=== PATIENT | male | born 1995 | race African-American/Black ===

== ENCOUNTER 2017-12-07 08:09 | Emergency (ER) | payer MEDICAID ==
[~2017-12-07] VITALS: Ht 172.7 cm; Wt 55.0 kg
[2017-12-07 08:43] VITALS: BP 138/58
[2017-12-07] MEDS ORDERED: CEFTRIAXONE SODIUM 250 MG/VIAL IM ONE (09:15)
[2017-12-07] MEDS ORDERED: AZITHROMYCIN 500 MG TABLET PO ONE (09:15)
[2017-12-07] MEDS ORDERED: LIDOCAINE HCL/PF 1% 10 MG/ML 5ML VIAL IJ ONE (09:15)
[2017-12-07 09:22] LABS: CLARITY URINE CLEAR (CLEAR); COLOR URINE YELLOW (YELLOW); KETONES URINE NEGATIVE (NEGATIVE); LEUKOCYTE ESTERASE URINE 1+ (NEGATIVE); NITRITE URINE NEGATIVE (NEGATIVE); OCCULT BLOOD URINE NEGATIVE (NEGATIVE); PH URINE 5.5 (4.5-8.0); PROTEIN URINE NEGATIVE (NEGATIVE); SPECIFIC GRAVITY URINE 1.022 (1.005-1.030); UROBILINOGEN URINE 0.2 E.U./dL (0.2-1.0)
[2017-12-07] MEDS ORDERED: LIDOCAINE HCL 1% 10 MG/ML 10ML VIAL ONE (09:44)
[2017-12-08 19:10] LABS: CHLAMYDIA TRACHOMATIS NAA Negative (Negative); NEISSERIA GONORRHOEAE NAA Negative (Negative)
== END 2017-12-07 10:06 | disposition home or self-care (01) ==
LOC: ER 08:09
DX: N39.0 Urinary tract infection, site not specified (principal); F17.210 Nicotine dependence, cigarettes, uncomplicated; R03.0 Elevated blood-pressure reading, without diagnosis of hypertension
CPT/HCPCS: 81003; 87491; 87591; 96372; 99284; J0696; J3490; Z7610

== ENCOUNTER 2018-08-29 11:25 | Emergency (ER) | payer MEDICAID ==
[~2018-08-29] VITALS: Ht 172.7 cm; Wt 62.2 kg
[2018-08-29] MEDS ORDERED: HYDROCODONE/ACETAMINOPHEN 5/325MG TABLET PO ONE (13:00)
[2018-08-29 13:02] VITALS: BP 130/69
== END 2018-08-29 13:35 | disposition home or self-care (01) ==
LOC: ER 12:40
DX: L02.411 Cutaneous abscess of right axilla (principal); F12.10 Cannabis abuse, uncomplicated; Z88.6 Allergy status to analgesic agent
CPT/HCPCS: 10060; 99283

== ENCOUNTER 2018-10-31 11:34 | Emergency (ER) | payer MEDICAID | END 2018-10-31 12:13 | disposition left against medical advice (07) | LOC: ER 11:34 | DX: Z53.21 Procedure and treatment not carried out due to patient leaving prior to being seen by health care provider (principal) ==

== ENCOUNTER 2018-10-31 12:48 | Emergency (ER) | payer MEDICAID ==
[~2018-10-31] VITALS: Ht 170.2 cm; Wt 61.0 kg
[2018-10-31 13:17] VITALS: BP 111/75
[2018-10-31] MEDS ORDERED: AZITHROMYCIN 500 MG TABLET PO ONE (14:30)
[2018-10-31] MEDS ORDERED: CEFTRIAXONE SODIUM 250 MG/VIAL IM ONE (14:30)
[2018-10-31] MEDS ORDERED: LIDOCAINE HCL 1% 20ML VIAL (Pyxis) INJ INFIL ONE (14:30)
[2018-10-31 14:37] LABS: CLARITY URINE CLEAR (CLEAR); COLOR URINE YELLOW (YELLOW); KETONES URINE 1+ (NEGATIVE); LEUKOCYTE ESTERASE URINE NEGATIVE (NEGATIVE); NITRITE URINE NEGATIVE (NEGATIVE); OCCULT BLOOD URINE NEGATIVE (NEGATIVE); PROTEIN URINE NEGATIVE (NEGATIVE); UROBILINOGEN URINE 0.2 E.U./dL (0.2-1.0)
== END 2018-10-31 16:17 | disposition home or self-care (01) ==
LOC: ER 15:44
DX: A64 Unspecified sexually transmitted disease (principal); F12.10 Cannabis abuse, uncomplicated; F17.200 Nicotine dependence, unspecified, uncomplicated
CPT/HCPCS: 81003; 87086; 96372; 99283; J0696; J3490

== ENCOUNTER 2018-11-21 09:50 | Emergency (ER) | payer MEDICAID ==
[~2018-11-21] VITALS: Ht 170.2 cm; Wt 58.0 kg
[2018-11-21] MEDS ORDERED: CEFTRIAXONE SODIUM 250 MG/VIAL IM ONE (10:15)
[2018-11-21] MEDS ORDERED: AZITHROMYCIN 500 MG TABLET PO ONE (10:15)
[2018-11-21 10:49] VITALS: BP 122/84
[2018-11-23 04:12] LABS: CHLAMYDIA TRACHOMATIS NAA Negative (Negative); NEISSERIA GONORRHOEAE NAA Negative (Negative)
== END 2018-11-21 10:49 | disposition home or self-care (01) ==
LOC: ER 09:50
DX: A64 Unspecified sexually transmitted disease (principal); R21 Rash and other nonspecific skin eruption; F12.10 Cannabis abuse, uncomplicated; F17.200 Nicotine dependence, unspecified, uncomplicated
CPT/HCPCS: 86592; 86694; 86695; 86696; 87491; 87591; 96372; 99283; J0696

== ENCOUNTER 2018-12-08 17:47 | Emergency (ER) | payer MEDICAID ==
[~2018-12-08] VITALS: Ht 170.2 cm; Wt 59.0 kg
[2018-12-08 18:08] VITALS: BP 104/77
[2018-12-08] MEDS ORDERED: LIDOCAINE HCL 1% 20ML VIAL (Pyxis) INJ INFIL ONE (22:30)
[2018-12-08] MEDS ORDERED: AZITHROMYCIN 500 MG TABLET PO ONE (22:30)
[2018-12-08] MEDS ORDERED: CEFTRIAXONE SODIUM 250 MG/VIAL IM ONE (22:30)
[2018-12-08 22:39] LABS: CLARITY URINE CLEAR (CLEAR); COLOR URINE YELLOW (YELLOW); KETONES URINE 1+ (NEGATIVE); LEUKOCYTE ESTERASE URINE 1+ (NEGATIVE); NITRITE URINE NEGATIVE (NEGATIVE); OCCULT BLOOD URINE NEGATIVE (NEGATIVE); PH URINE 5.5 (4.5-8.0); PROTEIN URINE NEGATIVE (NEGATIVE); SPECIFIC GRAVITY URINE 1.025 (1.005-1.030)
[2018-12-13 04:08] LABS: CHLAMYDIA TRACHOMATIS NAA Negative (Negative); NEISSERIA GONORRHOEAE NAA Negative (Negative)
== END 2018-12-08 23:41 | disposition home or self-care (01) ==
LOC: ER 18:17
DX: N34.2 Other urethritis (principal); F17.200 Nicotine dependence, unspecified, uncomplicated; F12.10 Cannabis abuse, uncomplicated
CPT/HCPCS: 81003; 87491; 87591; 96372; 99283; J0696; J3490

== ENCOUNTER 2018-12-17 23:22 | Emergency (ER) | payer MEDICAID ==
[~2018-12-17] VITALS: Ht 170.2 cm; Wt 57.0 kg
[2018-12-17 23:44] VITALS: BP 129/61
[2018-12-18 00:26] LABS: CLARITY URINE CLEAR (CLEAR); COLOR URINE YELLOW (YELLOW); PH URINE 5.5 (4.5-8.0); PROTEIN URINE NEGATIVE (NEGATIVE); SPECIFIC GRAVITY URINE 1.031 (1.005-1.030)
[2018-12-18 00:27] LABS: KETONES URINE TRACE (NEGATIVE); LEUKOCYTE ESTERASE URINE NEGATIVE (NEGATIVE); NITRITE URINE NEGATIVE (NEGATIVE); OCCULT BLOOD URINE NEGATIVE (NEGATIVE)
== END 2018-12-18 01:05 | disposition home or self-care (01) ==
LOC: ER 23:22
DX: R30.0 Dysuria (principal); F12.90 Cannabis use, unspecified, uncomplicated
CPT/HCPCS: 81003; 99283

== ENCOUNTER 2019-02-12 07:51 | Emergency (ER) | payer MEDICAID ==
[~2019-02-12] VITALS: Ht 172.7 cm; Wt 68.0 kg
[2019-02-12] MEDS ORDERED: AZITHROMYCIN 500 MG TABLET PO ONE (08:30)
[2019-02-12] MEDS ORDERED: CEFTRIAXONE SODIUM 250 MG/VIAL IM ONE (08:30)
[2019-02-12] MEDS ORDERED: LIDOCAINE HCL/PF 1% 10 MG/ML 5ML VIAL IJ ONE (08:30)
[2019-02-12 08:56] LABS: CLARITY URINE TURBID (CLEAR); COLOR URINE DARK YELLOW (YELLOW); KETONES URINE TRACE (NEGATIVE); LEUKOCYTE ESTERASE URINE 2+ (NEGATIVE); NITRITE URINE NEGATIVE (NEGATIVE); OCCULT BLOOD URINE 1+ (NEGATIVE); PH URINE 5.5 (4.5-8.0); PROTEIN URINE 1+ (NEGATIVE); SPECIFIC GRAVITY URINE 1.029 (1.005-1.030)
[2019-02-12 09:45] VITALS: BP 120/80
[2019-02-14 04:07] LABS: CHLAMYDIA TRACHOMATIS NAA Positive (Negative); NEISSERIA GONORRHOEAE NAA Positive (Negative)
== END 2019-02-12 09:45 | disposition home or self-care (01) ==
LOC: ER 07:51
DX: N39.0 Urinary tract infection, site not specified (principal); A64 Unspecified sexually transmitted disease; F12.10 Cannabis abuse, uncomplicated
CPT/HCPCS: 81003; 87077; 87086; 87491; 87591; 96372; 99283; J0696; J3490

== ENCOUNTER 2019-05-01 08:01 | Emergency (ER) | payer MEDICAID ==
[~2019-05-01] VITALS: Ht 172.7 cm; Wt 57.0 kg
[2019-05-01 08:09] VITALS: BP 107/61
[2019-05-01] MEDS ORDERED: CEFTRIAXONE SODIUM 250 MG/VIAL IM ONE (09:00)
[2019-05-01] MEDS ORDERED: AZITHROMYCIN 500 MG TABLET PO ONE (09:00)
== END 2019-05-01 09:39 | disposition home or self-care (01) ==
LOC: ER 08:01
DX: A64 Unspecified sexually transmitted disease (principal); F12.10 Cannabis abuse, uncomplicated
CPT/HCPCS: 96372; 99283; J0696

== ENCOUNTER 2019-08-19 09:31 | Emergency (ER) | payer MEDICAID ==
[~2019-08-19] VITALS: Ht 170.2 cm; Wt 54.0 kg
[2019-08-19 09:37] VITALS: BP 111/74
[2019-08-19 09:56] LABS: CLARITY URINE CLEAR (CLEAR); COLOR URINE YELLOW (YELLOW); KETONES URINE NEGATIVE (NEGATIVE); LEUKOCYTE ESTERASE URINE 1+ (NEGATIVE); NITRITE URINE NEGATIVE (NEGATIVE); OCCULT BLOOD URINE NEGATIVE (NEGATIVE); PH URINE 5.5 (4.5-8.0); PROTEIN URINE NEGATIVE (NEGATIVE); SPECIFIC GRAVITY URINE 1.018 (1.005-1.030); UROBILINOGEN URINE 0.2 E.U./dL (0.2-1.0)
[2019-08-19] MEDS ORDERED: AZITHROMYCIN 500 MG TABLET PO ONE (10:15)
[2019-08-19] MEDS ORDERED: CEFTRIAXONE SODIUM 250 MG/VIAL IM ONE (10:15)
== END 2019-08-19 10:55 | disposition home or self-care (01) ==
LOC: ER 09:31
DX: A64 Unspecified sexually transmitted disease (principal); F12.10 Cannabis abuse, uncomplicated
CPT/HCPCS: 81003; 87086; 96372; 99283; J0696

== ENCOUNTER 2019-09-20 10:44 | Emergency (ER) | payer MEDICAID ==
[~2019-09-20] VITALS: Ht 170.2 cm; Wt 56.0 kg
[2019-09-20 11:06] VITALS: BP 107/77
[2019-09-20] MEDS ORDERED: CEFTRIAXONE SODIUM 250 MG/VIAL IM ONE (11:30)
[2019-09-20] MEDS ORDERED: AZITHROMYCIN 500 MG TABLET PO ONE (11:30)
[2019-09-20 12:52] LABS: CLARITY URINE CLEAR (CLEAR); COLOR URINE YELLOW (YELLOW); KETONES URINE NEGATIVE (NEGATIVE); LEUKOCYTE ESTERASE URINE 1+ (NEGATIVE); NITRITE URINE NEGATIVE (NEGATIVE); OCCULT BLOOD URINE NEGATIVE (NEGATIVE); PROTEIN URINE NEGATIVE (NEGATIVE); SPECIFIC GRAVITY URINE 1.022 (1.005-1.030)
== END 2019-09-20 13:00 | disposition left against medical advice (07) ==
LOC: ER 10:44
DX: A56.01 Chlamydial cystitis and urethritis (principal); N39.0 Urinary tract infection, site not specified
CPT/HCPCS: 81003; 96372; 99283; J0696

== ENCOUNTER 2019-11-28 10:27 | Emergency (ER) | payer MEDICAID ==
[~2019-11-28] VITALS: Ht 170.2 cm; Wt 56.0 kg
[2019-11-28 10:30] VITALS: BP 105/56
[2019-11-28] MEDS ORDERED: CEFTRIAXONE SODIUM 250 MG/VIAL IM ONE (11:30)
[2019-11-28] MEDS ORDERED: AZITHROMYCIN 500 MG TABLET PO ONE (11:30)
[2019-11-30 17:06] LABS: NEISSERIA GONORRHOEAE NAA Negative (Negative)
== END 2019-11-28 11:45 | disposition home or self-care (01) ==
LOC: ER 10:41
DX: A64 Unspecified sexually transmitted disease (principal); F12.10 Cannabis abuse, uncomplicated
CPT/HCPCS: 87491; 87591; 96372; 99283; J0696

== ENCOUNTER 2019-12-02 12:55 | Emergency (ER) | payer MEDICAID ==
[~2019-12-02] VITALS: Ht 170.2 cm; Wt 57.0 kg
[2019-12-02 13:24] VITALS: BP 112/66
== END 2019-12-02 15:00 | disposition left against medical advice (07) ==
LOC: ER 13:16
DX: A64 Unspecified sexually transmitted disease (principal); Z53.21 Procedure and treatment not carried out due to patient leaving prior to being seen by health care provider

== ENCOUNTER 2019-12-03 08:42 | Emergency (ER) | payer MEDICAID ==
[~2019-12-03] VITALS: Ht 177.8 cm; Wt 72.0 kg
[2019-12-03 08:50] VITALS: BP 170/150
[2019-12-03] MEDS ORDERED: CEFTRIAXONE SODIUM 250 MG/VIAL IM ONE (09:30)
[2019-12-03] MEDS ORDERED: AZITHROMYCIN 500 MG TABLET PO ONE (09:30)
== END 2019-12-03 11:11 | disposition left against medical advice (07) ==
LOC: ER 08:42
DX: Z20.2 Contact with and (suspected) exposure to infections with a predominantly sexual mode of transmission (principal); R03.0 Elevated blood-pressure reading, without diagnosis of hypertension
CPT/HCPCS: 96372; 99283; J0696

== ENCOUNTER 2020-02-17 07:39 | Emergency (ER) | payer MEDICAID ==
[~2020-02-17] VITALS: Ht 170.2 cm; Wt 70.0 kg
[2020-02-17 07:45] VITALS: BP 111/79
[2020-02-17] MEDS ORDERED: AZITHROMYCIN 500 MG TABLET PO ONE (08:15)
[2020-02-17] MEDS ORDERED: CEFTRIAXONE SODIUM 250 MG/VIAL IM ONE (08:15)
[2020-02-17] MEDS ORDERED: LIDOCAINE HCL/PF 1% 10 MG/ML 5ML VIAL IJ ONE (09:00)
== END 2020-02-17 09:18 | disposition home or self-care (01) ==
LOC: ER 07:42
DX: R36.9 Urethral discharge, unspecified (principal); N34.2 Other urethritis; F12.10 Cannabis abuse, uncomplicated
CPT/HCPCS: 96372; 99283; J0696; J3490

== ENCOUNTER 2020-04-05 07:31 | Emergency (ER) | payer MEDICAID ==
[~2020-04-05] VITALS: Ht 170.2 cm; Wt 68.0 kg
[2020-04-05] MEDS ORDERED: CEFTRIAXONE SODIUM 500 MG/VIAL IM ONE (08:30)
[2020-04-05] MEDS ORDERED: DOXYCYCLINE HYCLATE 100MG CAPSULE PO ONE (08:30)
[2020-04-05] MEDS ORDERED: DOXY100T2 MT (08:39)
[2020-04-05 08:54] VITALS: BP 97/71
[2020-04-05 08:56] LABS: CLARITY URINE CLEAR (CLEAR); COLOR URINE YELLOW (YELLOW); KETONES URINE TRACE (NEGATIVE); LEUKOCYTE ESTERASE URINE TRACE (NEGATIVE); NITRITE URINE NEGATIVE (NEGATIVE); OCCULT BLOOD URINE NEGATIVE (NEGATIVE); PROTEIN URINE NEGATIVE (NEGATIVE); SPECIFIC GRAVITY URINE 1.027 (1.005-1.030); UROBILINOGEN URINE 0.2 E.U./dL (0.2-1.0)
[2020-04-08 04:07] LABS: NEISSERIA GONORRHOEAE NAA Negative (Negative)
== END 2020-04-05 08:55 | disposition home or self-care (01) ==
LOC: ER 07:31
DX: Z20.2 Contact with and (suspected) exposure to infections with a predominantly sexual mode of transmission (principal); R30.0 Dysuria; F12.90 Cannabis use, unspecified, uncomplicated
CPT/HCPCS: 81003; 87491; 87591; 96372; 99283; J0696

== ENCOUNTER 2020-04-22 06:54 | Emergency (ER) | payer MEDICAID ==
[~2020-04-22] VITALS: Ht 170.2 cm; Wt 59.0 kg
[~2020-04-22 06:54] MED LIST: DOXY100T2 MT
[2020-04-22] MEDS ORDERED: CEFTRIAXONE SODIUM 250 MG/VIAL IM ONE (07:15)
[2020-04-22] MEDS ORDERED: DOXYCYCLINE HYCLATE 100MG CAPSULE PO ONE (07:15)
[2020-04-22] MEDS ORDERED: DOXY100T2 MT (07:16)
[2020-04-22 07:30] VITALS: BP 114/72
== END 2020-04-22 08:04 | disposition home or self-care (01) ==
LOC: ER 07:15
DX: A74.9 Chlamydial infection, unspecified (principal); F12.10 Cannabis abuse, uncomplicated; Z79.899 Other long term (current) drug therapy
CPT/HCPCS: 96372; 99283; J0696

== ENCOUNTER 2020-04-28 10:10 | Emergency (ER) | payer MEDICAID ==
[~2020-04-28] VITALS: Ht 170.2 cm; Wt 50.0 kg
[2020-04-28 10:26] VITALS: BP 108/72
[2020-04-28] MEDS ORDERED: CEFTRIAXONE SODIUM 500 MG/VIAL IM ONE (10:45)
[2020-04-28] MEDS ORDERED: DOXYCYCLINE HYCLATE 100MG CAPSULE PO ONE (10:45)
[2020-04-28] MEDS ORDERED: DOXY100C42 MT (10:51)
[2020-04-30 08:08] LABS: NEISSERIA GONORRHOEAE NAA Negative (Negative)
== END 2020-04-28 11:11 | disposition home or self-care (01) ==
LOC: ER 10:10
DX: Z20.2 Contact with and (suspected) exposure to infections with a predominantly sexual mode of transmission (principal); F12.90 Cannabis use, unspecified, uncomplicated
CPT/HCPCS: 87491; 87591; 96372; 99283; J0696

== ENCOUNTER 2020-06-02 10:57 | Emergency (ER) | payer MEDICAID ==
[~2020-06-02] VITALS: Ht 170.2 cm; Wt 54.0 kg
[~2020-06-02 10:57] MED LIST changes: +DOXY100C42 MT
[2020-06-02] MEDS ORDERED: CEFTRIAXONE SODIUM 500 MG/VIAL IM ONE (11:30)
[2020-06-02] MEDS ORDERED: DOXY100C2 MT (12:54)
[2020-06-02 13:00] VITALS: BP 108/78
[2020-06-02 13:50] LABS: CLARITY URINE CLEAR (CLEAR); COLOR URINE YELLOW (YELLOW); KETONES URINE NEGATIVE (NEGATIVE); LEUKOCYTE ESTERASE URINE NEGATIVE (NEGATIVE); NITRITE URINE NEGATIVE (NEGATIVE); OCCULT BLOOD URINE NEGATIVE (NEGATIVE); PH URINE 5.5 (4.5-8.0); PROTEIN URINE NEGATIVE (NEGATIVE); SPECIFIC GRAVITY URINE 1.024 (1.005-1.030)
== END 2020-06-02 13:00 | disposition home or self-care (01) ==
LOC: ER 11:41
DX: A56.01 Chlamydial cystitis and urethritis (principal); R03.0 Elevated blood-pressure reading, without diagnosis of hypertension
CPT/HCPCS: 81003; 99283; J0696

== ENCOUNTER 2020-08-01 06:17 | Emergency (ER) | payer MEDICAID ==
[~2020-08-01] VITALS: Ht 170.2 cm; Wt 55.0 kg
[~2020-08-01 06:17] MED LIST changes: +DOXY100C2 MT
[2020-08-01] MEDS ORDERED: LIDOCAINE HCL 1% 20ML VIAL (Pyxis) INJ INFIL ONE (06:45)
[2020-08-01] MEDS ORDERED: PENICILLIN G BENZATHINE 2,400,000 UNITS/4ML SYR IM ONE (06:45)
[2020-08-01] MEDS ORDERED: CEFTRIAXONE SODIUM 500 MG/VIAL IM ONE (06:45)
[2020-08-01 07:01] LABS: CLARITY URINE CLEAR (CLEAR); COLOR URINE DARK YELLOW (YELLOW); KETONES URINE TRACE (NEGATIVE); LEUKOCYTE ESTERASE URINE TRACE (NEGATIVE); NITRITE URINE NEGATIVE (NEGATIVE); OCCULT BLOOD URINE NEGATIVE (NEGATIVE); PROTEIN URINE NEGATIVE (NEGATIVE)
[2020-08-01] MEDS ORDERED: DOXY100T2 MT (08:09)
[2020-08-01 08:19] VITALS: BP 112/70
== END 2020-08-01 08:20 | disposition home or self-care (01) ==
LOC: ER 06:17
DX: A64 Unspecified sexually transmitted disease (principal); F12.10 Cannabis abuse, uncomplicated
CPT/HCPCS: 81003; 86592; 96372; 99284; J0561; J0696

== ENCOUNTER 2020-08-18 08:24 | Emergency (ER) | payer MEDICAID ==
[~2020-08-18] VITALS: Ht 170.2 cm; Wt 57.0 kg
[2020-08-18] MEDS ORDERED: DOXY100C2 MT (08:39)
[2020-08-18] MEDS ORDERED: AZITHROMYCIN 500 MG TABLET PO ONE (08:45)
[2020-08-18] MEDS ORDERED: CEFTRIAXONE SODIUM 500 MG/VIAL IM ONE (08:45)
[2020-08-18 09:14] VITALS: BP 102/69
[2020-08-18 10:02] LABS: CLARITY URINE CLEAR (CLEAR); COLOR URINE YELLOW (YELLOW); KETONES URINE NEGATIVE (NEGATIVE); LEUKOCYTE ESTERASE URINE NEGATIVE (NEGATIVE); NITRITE URINE NEGATIVE (NEGATIVE); OCCULT BLOOD URINE NEGATIVE (NEGATIVE); PH URINE 5.5 (4.5-8.0); PROTEIN URINE NEGATIVE (NEGATIVE); SPECIFIC GRAVITY URINE 1.022 (1.005-1.030); UROBILINOGEN URINE 0.2 E.U./dL (0.2-1.0)
== END 2020-08-18 09:16 | disposition home or self-care (01) ==
LOC: ER 08:24
DX: Z20.2 Contact with and (suspected) exposure to infections with a predominantly sexual mode of transmission (principal)
CPT/HCPCS: 81003; 86592; 86780; 96372; 99283; J0696

== ENCOUNTER 2020-10-09 09:10 | Emergency (ER) | payer MEDICAID ==
[~2020-10-09] VITALS: Ht 170.2 cm; Wt 57.0 kg
[2020-10-09 09:15] VITALS: BP 106/69
[2020-10-09] MEDS ORDERED: PENI500T MT (09:43)
[2020-10-09] MEDS ORDERED: DOXY100C2 MT (09:43)
[2020-10-09] MEDS ORDERED: CEFTRIAXONE SODIUM 1 G/VIAL IM ONE (09:45)
== END 2020-10-09 10:05 | disposition home or self-care (01) ==
LOC: ER 09:10
DX: Z20.822 Contact with and (suspected) exposure to COVID-19 (principal); Z20.2 Contact with and (suspected) exposure to infections with a predominantly sexual mode of transmission; R03.0 Elevated blood-pressure reading, without diagnosis of hypertension; F12.90 Cannabis use, unspecified, uncomplicated
CPT/HCPCS: 96372; 99283; C9803; J0696; U0003; U0005

== ENCOUNTER 2020-11-10 10:27 | Emergency (ER) | payer MEDICAID ==
[~2020-11-10] VITALS: Ht 170.2 cm; Wt 57.0 kg
[~2020-11-10 10:27] MED LIST changes: +DOXY-326 MT; -DOXY100C2 MT; -DOXY100C42 MT; +DOXY100C5 MT; +PENI500T MT
[2020-11-10 10:30] VITALS: BP 105/70
[2020-11-10] MEDS ORDERED: CEFTRIAXONE SODIUM 500 MG/VIAL IM ONE (12:00)
[2020-11-10] MEDS ORDERED: LIDOCAINE HCL 1% 20ML VIAL (Pyxis) INJ INFIL ONE (12:00)
[2020-11-10] MEDS ORDERED: PENICILLIN G BENZATHINE 2,400,000 UNITS/4ML SYR IM ONE (13:00)
[2020-11-10] MEDS ORDERED: PENICILLIN G BENZATHINE 2,400,000 UNITS/4ML SYR IM SCH (13:30)
[2020-11-10] MEDS ORDERED: DOXY100C5 MT (14:03)
[2020-11-12 08:11] LABS: NEISSERIA GONORRHOEAE NAA Positive (Negative)
== END 2020-11-10 14:19 | disposition home or self-care (01) ==
LOC: ER 10:27
DX: A54.00 Gonococcal infection of lower genitourinary tract, unspecified (principal)
CPT/HCPCS: 87491; 87591; 96372; 99284; J0561; J0696; J3490

== ENCOUNTER 2020-11-17 02:07 | Emergency (ER) | payer MEDICAID ==
[~2020-11-17] VITALS: Ht 170.2 cm; Wt 55.0 kg
[2020-11-17 02:32] VITALS: BP 103/64
== END 2020-11-17 04:39 | disposition left against medical advice (07) ==
LOC: ER 02:07
DX: Z53.21 Procedure and treatment not carried out due to patient leaving prior to being seen by health care provider (principal)

== ENCOUNTER 2020-12-01 06:13 | Emergency (ER) | payer MEDICAID ==
[~2020-12-01] VITALS: Ht 170.2 cm; Wt 55.0 kg
[2020-12-01 06:30] VITALS: BP 100/60
[2020-12-01] MEDS ORDERED: DOXY100T2 PO (06:52)
[2020-12-01] MEDS ORDERED: CEFTRIAXONE SODIUM 1 G/VIAL IM ONE (07:00)
[2020-12-01] MEDS ORDERED: DOXYCYCLINE HYCLATE 100MG CAPSULE PO ONE (07:00)
[2020-12-01 08:42] LABS: CLARITY URINE CLEAR (CLEAR); COLOR URINE YELLOW (YELLOW); KETONES URINE NEGATIVE (NEGATIVE); LEUKOCYTE ESTERASE URINE NEGATIVE (NEGATIVE); NITRITE URINE NEGATIVE (NEGATIVE); OCCULT BLOOD URINE NEGATIVE (NEGATIVE); PH URINE 5.5 (4.5-8.0); PROTEIN URINE NEGATIVE (NEGATIVE); SPECIFIC GRAVITY URINE 1.022 (1.005-1.030); UROBILINOGEN URINE 0.2 E.U./dL (0.2-1.0)
[2020-12-03 14:09] LABS: NEISSERIA GONORRHOEAE NAA Negative (Negative)
== END 2020-12-01 07:29 | disposition home or self-care (01) ==
LOC: ER 06:38
DX: Z20.2 Contact with and (suspected) exposure to infections with a predominantly sexual mode of transmission (principal); R30.0 Dysuria
CPT/HCPCS: 81003; 87491; 87591; 96372; 99283; J0696

== ENCOUNTER 2020-12-16 06:18 | Emergency (ER) | payer MEDICAID ==
[~2020-12-16] VITALS: Ht 170.2 cm; Wt 120.0 kg
[~2020-12-16 06:18] MED LIST changes: +DOXY100T2 PO
[2020-12-16] MEDS ORDERED: DOXY100C5 MT (06:39)
[2020-12-16] MEDS ORDERED: LIDOCAINE HCL 1% 20ML VIAL (Pyxis) INJ INFIL ONE (06:45)
[2020-12-16] MEDS ORDERED: CEFTRIAXONE SODIUM 500 MG/VIAL IM ONE (06:45)
[2020-12-16 07:04] VITALS: BP 128/78
[2020-12-18 09:09] LABS: NEISSERIA GONORRHOEAE NAA Negative (Negative)
== END 2020-12-16 07:05 | disposition home or self-care (01) ==
LOC: ER 06:18
DX: A64 Unspecified sexually transmitted disease (principal); F12.10 Cannabis abuse, uncomplicated; Z79.899 Other long term (current) drug therapy
CPT/HCPCS: 87491; 87591; 96372; 99283; J0696; J3490

== ENCOUNTER 2020-12-22 06:03 | Emergency (ER) | payer MEDICAID ==
[~2020-12-22] VITALS: Ht 170.2 cm; Wt 55.0 kg
[2020-12-22 06:18] VITALS: BP 104/72
== END 2020-12-22 06:58 | disposition home or self-care (01) ==
LOC: ER 06:03
DX: Z20.2 Contact with and (suspected) exposure to infections with a predominantly sexual mode of transmission (principal)
CPT/HCPCS: 99281

== ENCOUNTER 2021-02-28 06:24 | Emergency (ER) | payer MEDICAID ==
[~2021-02-28] VITALS: Ht 170.2 cm; Wt 59.0 kg
[2021-02-28] MEDS ORDERED: CEFTRIAXONE SODIUM 500 MG/VIAL IM ONE (07:30)
[2021-02-28] MEDS ORDERED: DOXY100C5 MT (07:32)
[2021-02-28 08:24] VITALS: BP 126/75
== END 2021-02-28 08:25 | disposition home or self-care (01) ==
LOC: ER 06:24
DX: A54.9 Gonococcal infection, unspecified (principal); F12.10 Cannabis abuse, uncomplicated; Z79.899 Other long term (current) drug therapy
CPT/HCPCS: 96372; 99283; J0696

== ENCOUNTER 2021-06-20 06:17 | Emergency (ER) | payer MEDICAID ==
[~2021-06-20] VITALS: Ht 170.2 cm; Wt 57.0 kg
[2021-06-20 06:45] VITALS: BP 108/74
[2021-06-20] MEDS ORDERED: CEFTRIAXONE SODIUM 500 MG/VIAL IM ONE (07:15)
[2021-06-20] MEDS ORDERED: DOXYCYCLINE HYCLATE 100MG CAPSULE PO ONE (07:15)
[2021-06-20] MEDS ORDERED: DOXY100T2 MT (07:17)
[2021-06-20 07:51] LABS: CLARITY URINE CLEAR (CLEAR); COLOR URINE YELLOW (YELLOW); KETONES URINE NEGATIVE (NEGATIVE); LEUKOCYTE ESTERASE URINE NEGATIVE (NEGATIVE); NITRITE URINE NEGATIVE (NEGATIVE); OCCULT BLOOD URINE NEGATIVE (NEGATIVE); PH URINE 5.5 (4.5-8.0); PROTEIN URINE NEGATIVE (NEGATIVE); SPECIFIC GRAVITY URINE 1.027 (1.005-1.030); UROBILINOGEN URINE 0.2 E.U./dL (0.2-1.0)
== END 2021-06-20 08:03 | disposition home or self-care (01) ==
LOC: ER 06:17
DX: Z20.2 Contact with and (suspected) exposure to infections with a predominantly sexual mode of transmission (principal)
CPT/HCPCS: 81003; 96372; 99283; J0696

== ENCOUNTER 2021-08-10 10:43 | Emergency (ER) | payer MEDICAID ==
[~2021-08-10] VITALS: Ht 165.1 cm; Wt 74.0 kg
[2021-08-10] MEDS ORDERED: DOXYCYCLINE HYCLATE 100MG CAPSULE PO ONE (13:00)
[2021-08-10] MEDS ORDERED: CEFTRIAXONE SODIUM 500 MG/VIAL IM ONE (13:00)
[2021-08-10] MEDS ORDERED: DOXY-326 MT (13:37)
[2021-08-10 14:34] VITALS: BP 112/74
== END 2021-08-10 16:07 | disposition home or self-care (01) ==
LOC: ER 10:43
DX: Z20.2 Contact with and (suspected) exposure to infections with a predominantly sexual mode of transmission (principal); R30.0 Dysuria
CPT/HCPCS: 96372; 99283; J0696

== ENCOUNTER 2021-09-05 05:49 | Emergency (ER) | payer MEDICAID ==
[~2021-09-05] VITALS: Ht 170.2 cm; Wt 55.0 kg
[2021-09-05 05:57] VITALS: BP 104/64
== END 2021-09-05 07:08 | disposition left against medical advice (07) ==
LOC: ER 05:49
DX: Z53.21 Procedure and treatment not carried out due to patient leaving prior to being seen by health care provider (principal)

== ENCOUNTER 2022-05-18 07:18 | Emergency (ER) | payer MEDICAID ==
[~2022-05-18] VITALS: Ht 170.2 cm; Wt 57.0 kg
[~2022-05-18 07:18] MED LIST changes: -DOXY-326 MT; +DOXY-456 MT
[2022-05-18 07:22] VITALS: BP 111/76
[2022-05-18] MEDS ORDERED: LIDOCAINE HCL 1% 20ML VIAL (Pyxis) INJ INFIL ONE (08:00)
[2022-05-18] MEDS ORDERED: CEFTRIAXONE SODIUM 500 MG/VIAL IM ONE (08:00)
[2022-05-18] MEDS ORDERED: DOXY100C5 MT (08:21)
== END 2022-05-18 08:33 | disposition home or self-care (01) ==
LOC: ER 07:18
DX: A64 Unspecified sexually transmitted disease (principal)
CPT/HCPCS: 87591; 96372; 99283; J0696; J3490

== ENCOUNTER 2022-05-26 07:41 | Emergency (ER) | payer MEDICAID ==
[~2022-05-26] VITALS: Ht 170.2 cm; Wt 57.0 kg
[2022-05-26 07:46] VITALS: BP 111/68
== END 2022-05-26 13:42 | disposition left against medical advice (07) ==
LOC: ER 07:41
DX: Z53.21 Procedure and treatment not carried out due to patient leaving prior to being seen by health care provider (principal)
CPT/HCPCS: 99281

== ENCOUNTER 2022-06-14 06:43 | Emergency (ER) | payer MEDICAID ==
[~2022-06-14] VITALS: Ht 170.2 cm; Wt 60.1 kg
[2022-06-14 06:51] VITALS: BP 115/73
[2022-06-14] MEDS ORDERED: DOXY100C5 PO (07:26)
[2022-06-14] MEDS ORDERED: CEFTRIAXONE SODIUM 1 G/VIAL IM ONE (07:30)
[2022-06-14] MEDS ORDERED: DOXYCYCLINE HYCLATE 100MG CAPSULE PO ONE (07:30)
[2022-06-14 07:47] LABS: CLARITY URINE CLEAR (CLEAR); COLOR URINE YELLOW (YELLOW); KETONES URINE TRACE (NEGATIVE); LEUKOCYTE ESTERASE URINE NEGATIVE (NEGATIVE); NITRITE URINE NEGATIVE (NEGATIVE); OCCULT BLOOD URINE NEGATIVE (NEGATIVE); PH URINE 5.5 (4.5-8.0); PROTEIN URINE NEGATIVE (NEGATIVE); SPECIFIC GRAVITY URINE 1.025 (1.005-1.030)
== END 2022-06-14 08:23 | disposition home or self-care (01) ==
LOC: ER 06:43
DX: A64 Unspecified sexually transmitted disease (principal)
CPT/HCPCS: 81003; 96372; 99283; J0696

== ENCOUNTER 2022-08-12 19:00 | Emergency (ER) | payer MEDICAID, OTHER ==
[~2022-08-12] VITALS: Ht 170.2 cm; Wt 57.0 kg
[~2022-08-12 19:00] MED LIST changes: +DOXY100C5 PO
[2022-08-12 19:06] VITALS: BP 117/78
[2022-08-12 19:38] LABS: BASOPHILS % 1.2 % (0.0-2.0); EOSINOPHILS % 1.6 % (0.0-5.0); HEMATOCRIT. 44.5 % (42.0-52.0); HEMOGLOBIN. 14.6 g/dL (14.0-18.0); LYMPHOCYTES % 42.5 % (20.0-50.0); MEAN CORPUSCULAR HEMOGLOBIN 27.3 pg (28.0-32.0); MEAN CORPUSCULAR VOLUME 83.1 fL (80.0-94.0); MONOCYTES % 6.5 % (2.0-8.0); NEUTROPHILS % 48.2 % (40.0-76.0); PLATELET 230 x1000/uL (130-400); RED BLOOD CELL COUNT 5.35 mill/uL (4.7-6.1); RED CELL DISTRIBUTION WIDTH 14.1 % (11.6-14.6)
[2022-08-12 19:40] LABS: CHLORIDE 106 mEq/L (98-107)
[2022-08-12] MEDS ORDERED: IBUP-2029 MT (21:36)
[2022-08-12] MEDS ORDERED: CYCL10TA21 MT (21:36)
[2022-08-12] MEDS ORDERED: IBUPROFEN 600MG TABLET PO ONE (21:45)
== END 2022-08-12 21:51 | disposition home or self-care (01) ==
LOC: ER 19:00
DX: S20.219A Contusion of unspecified front wall of thorax, initial encounter (principal); Y08.89XA Assault by other specified means, initial encounter; Y93.89 Activity, other specified; Y92.89 Other specified places as the place of occurrence of the external cause; Y99.8 Other external cause status; F12.10 Cannabis abuse, uncomplicated; Z79.899 Other long term (current) drug therapy
CPT/HCPCS: 36415; 71045; 80053; 84484; 85025; 93005; 99285

== ENCOUNTER 2023-05-17 06:12 | Emergency (ER) | payer MEDICAID ==
[~2023-05-17] VITALS: Ht 170.2 cm; Wt 61.6 kg
[~2023-05-17 06:12] MED LIST changes: +CYCL10TA21 MT; +IBUP-2029 MT
[2023-05-17 06:25] VITALS: BP 119/82; PULSE 70; RESP 18; TEMP 98.4; O2SAT 99
[2023-05-17 06:58] LABS: CLARITY URINE CLEAR (CLEAR); COLOR URINE YELLOW (YELLOW); GLUCOSE URINE NEGATIVE (NEGATIVE); KETONES URINE TRACE (NEGATIVE); LEUKOCYTE ESTERASE URINE NEGATIVE (NEGATIVE); NITRITE URINE NEGATIVE (NEGATIVE); OCCULT BLOOD URINE NEGATIVE (NEGATIVE); PROTEIN URINE NEGATIVE (NEGATIVE); SPECIFIC GRAVITY URINE 1.006 (1.005-1.030)
[2023-05-17] MEDS: CEFTRIAXONE SODIUM 500MG VIAL IM ONE (07:24)
== END 2023-05-17 07:30 | disposition home or self-care (01) ==
LOC: ER 06:12
DX: Z20.2 Contact with and (suspected) exposure to infections with a predominantly sexual mode of transmission (principal); N34.2 Other urethritis; F12.10 Cannabis abuse, uncomplicated; Z79.899 Other long term (current) drug therapy
CPT/HCPCS: 81003; 96372; 99283; J0696; Z7610

== ENCOUNTER 2023-10-10 06:06 | Emergency (ER) | payer MEDICAID, OTHER ==
[~2023-10-10] VITALS: Ht 170.2 cm; Wt 77.0 kg
[2023-10-10 06:08] VITALS: O2SAT 99
[2023-10-10] MEDS: DOXYCYCLINE HYCLATE 100MG CAPSULE PO ONE (07:15)
[2023-10-10] MEDS: CEFTRIAXONE SODIUM 1G VIAL IM ONE (07:15)
[2023-10-10 07:31] VITALS: BP 121/78; PULSE 79; RESP 18; TEMP 98.4
== END 2023-10-10 08:01 | disposition home or self-care (01) ==
LOC: ER 06:19
DX: A54.9 Gonococcal infection, unspecified (principal); A74.9 Chlamydial infection, unspecified; F12.90 Cannabis use, unspecified, uncomplicated; Z79.899 Other long term (current) drug therapy
CPT/HCPCS: 96372; 99283; J0696; Z7610

== ENCOUNTER 2023-11-21 04:10 | Emergency (ER) | payer MEDICAID, OTHER ==
[~2023-11-21] VITALS: Ht 170.2 cm; Wt 59.0 kg
[~2023-11-21 04:10] MED LIST changes: -DOXY-456 MT; +DOXY100C74 MT
[2023-11-21 04:23] VITALS: O2SAT 100
[2023-11-21] MEDS: CEFTRIAXONE SODIUM 1G VIAL IM ONE (06:00)
[2023-11-21] MEDS: DOXYCYCLINE HYCLATE 100MG CAPSULE PO ONE (06:00)
[2023-11-21 06:30] VITALS: BP 105/83; PULSE 77; RESP 16; TEMP 36.94740; O2SAT 100
[2023-11-21 07:58] LABS: CLARITY URINE CLEAR (CLEAR); COLOR URINE YELLOW (YELLOW); GLUCOSE URINE NEGATIVE (NEGATIVE); KETONES URINE NEGATIVE (NEGATIVE); LEUKOCYTE ESTERASE URINE NEGATIVE (NEGATIVE); NITRITE URINE NEGATIVE (NEGATIVE); OCCULT BLOOD URINE TRACE (NEGATIVE); PH URINE 5.5 (4.5-8.0); PROTEIN URINE NEGATIVE (NEGATIVE); SPECIFIC GRAVITY URINE 1.022 (1.005-1.030); UROBILINOGEN URINE 0.2 E.U./dL (0.2-1.0)
[2023-11-21 08:19] LABS: BACTERIA URINE NONE SEEN; SQUAMOUS EPITHELIAL CELL URINE RARE /lpf (RARE/1+); WBC URINE 0-2 /hpf (0-2); YEAST URINE NONE SEEN
== END 2023-11-21 08:09 | disposition home or self-care (01) ==
LOC: ER 04:18
DX: A54.9 Gonococcal infection, unspecified (principal); A74.9 Chlamydial infection, unspecified; F12.10 Cannabis abuse, uncomplicated; Z79.899 Other long term (current) drug therapy
CPT/HCPCS: 99283; 81003; 96372; J0696